=== PATIENT | male | born 1975 | race Caucasian/White ===

== ENCOUNTER 2020-07-13 07:03 | Emergency (ER) | payer SELFPAY ==
[~2020-07-13] VITALS: Ht 167.6 cm; Wt 57.0 kg
[2020-07-13 07:05] VITALS: BP 97/63
[2020-07-13] MEDS ORDERED: IBUPROFEN 200 MG TABLET ONE (07:27)
[2020-07-13] MEDS ORDERED: AMOXICILLIN 500 MG CAPSULE ONE (07:27)
[2020-07-13] MEDS ORDERED: IBUPROFEN 200 MG TABLET PO ONE (07:30)
[2020-07-13] MEDS ORDERED: AMOXICILLIN 500 MG CAPSULE PO ONE (07:30)
== END 2020-07-13 07:40 | disposition home or self-care (01) ==
LOC: ED 07:20
DX: K02.9 Dental caries, unspecified (principal); K08.89 Other specified disorders of teeth and supporting structures
CPT/HCPCS: 99283